=== PATIENT | male | born 1970 | race Caucasian/White ===

== ENCOUNTER 2017-08-11 20:08 | Emergency (ER) | payer BC, SELFPAY ==
[2017-08-11 20:09] VITALS: BP 150/106; PULSE 67; RESP 15; TEMP 36.6; BMI 28.7
--- NOTE | 2017-08-11 20:24 | EKG12_ITS ---
Test Reason : BP Blood Pressure : / mmHG Vent. Rate : 064 BPM Atrial Rate : 064 BPM P-R Int : 152 ms QRS Dur : 090 ms QT Int : 420 ms P-R-T Axes : 057 050 029 degrees QTc Int : 433 ms Normal sinus rhythm Nonspecific T wave abnormality Abnormal ECG Confirmed by JUAN M LEE, JAI ([id number]), general expeditor DARLENE POND ([id number] on 08/13/2017 1:26:15 PM Referred By: MARGAUX ANTHONY Confirmed By:JAI MCGOWAN MD
--- NOTE | 2017-08-11 20:25 | ED.VISSUMM ---
- ER Visit Summary Date of Service: 08/11/17 Chief Complaint: Elevated blood pressure History of Present Illness: The patient is a 46 M medical history significant for hypertension presents to the emergency department with a few days of elevated blood pressure. The patient is on 10 mg of amlodipine. He is also on atorvastatin. He states over the past few days, he is just felt not myself. He states he took his blood pressure at home and it was 182/104. He does admit to mild headache. He denies visual change. He denies any weakness numbness or tingling. He states that he did have some mild chest tightness, but let out a big burp on the way to the hospital and his pain resolved. It was non-radiating. It was not exertional. The patient states that he does not check his blood pressure normally. He states a few weeks ago, he went in for dental procedure and his blood pressure was 170 systolic. He has had no recent changes in his medications. Physical Examination: Vital signs reviewed General: Well-nourished, well-developed Head: Normocephalic, atraumatic Eyes: Pupils equal and reactive, extraocular muscles intact Neck, supple, no lymphadenopathy Heart: Regular rate and rhythm Respiratory: No distress, clear bilaterally Abdomen: Soft, nontender, nondistended, no peritoneal signs Back: Nontender Extremities: Nontender, no edema, no cords Skin: Normal color no rash Neuro: Alert and oriented, no focal or lateralizing deficits Test Results: [] Emergency Department Course and Treatment: The patient has an EKG which shows no acute ischemic change. His cardiac enzymes are normal. Screening labs are unremarkable. Without intervention, the patient's blood pressure decreased to the 130 systolic. He is a benign neurologic examination. The patient has had significant intolerance to multi antihypertensives. I am going to write him a prescription for hydrochlorothiazide, but told him not to fill it until he speaks with his PCP on Sunday. As his blood pressures down to the normal range, I am not sure if he will need it. The patient is comfortable with this plan of care will be discharged. Treatment Plan: [] Disposition: Discharge Impression: 1. Hypertension This note was generated with [employer] software. It may contain incorrect words, spelling, and punctuation that were not noted in review of the chart prior to signing ED Disposition - Plan for ED Patient: Disposition: Home or Assisted Living Chief Complaint: Hypertension Instructions: ED HTN Established Prescriptions: Hydrochlorothiazide [Hctz] 25 mg PO DAILY #30 tab Referrals: [facility] Doctor,Out of [Primary Care Provider] -
[2017-08-11 20:46] LABS: Absolute Lymphocyte Count 2.46 X10^3/ul (0.83-4.51); Absolute Neutrophil Count 3.3 X10^3/uL (2.0-7.7); Basophil# 0.06 X10^3/uL; Basophil% 0.9 % (0-1); Eosinophil# 0.27 X10^3/uL; Eosinophils% 3.9 % (0-5); Hematocrit 43.2 % (40-54); Hemoglobin 14.6 g/dl (13.0-16.5); Lymphocyte # 2.46 X10^3/ul (4.0); Lymphocyte % 35.5 % (19-41); Mean Corp Hgb Conc 33.8 g/gl (32-36); Mean Corpuscular Hgb 29.1 pg (27.0-32.0); Mean Corpuscular Volume 86.2 fL (80-94); Monocyte# 0.86 X10^3/uL; Monocyte% 12.4 % (0-10); Neutrophil # 3.27 X10^3/uL (2.7-7.7); Neutrophil % 47.2 % (47-70); Platelet Count 364 K/mm3 (150-450); RBC Distribution Width CV 12.8 % (11.6-14.6); RBC Distribution Width SD 39.6 fl (35.1-43.9); Red Blood Count 5.01 M/mm3 (4.6-6.2); White Blood Count 6.9 K/mm3 (4.4-11.0)
[2017-08-11 20:47] LABS: POSITIVE COUNT NO; POSITIVE DIFFERENTIAL NO; POSITIVE MORPHOLOGY NO
[2017-08-11 21:04] LABS: Anion Gap 7 (5-15); BUN 14 mg/dL (7-18); BUN/Creat Ratio 15.7 RATIO (10-20); Calcium,Total 9.3 mg/dL (8.5-10.1); Chloride 107 mmol/L (98-107); Creatinine, Serum 0.89 mg/dL (0.70-1.30); EST Glomerular Filtration Rate 98 mL/min (>60); Est Glom Filt Rate - Afr Amer 118 mL/min (>60); Estimated Creatinine Clearance 109.36 ml/min; Glucose 86 mg/dL (74-106); Potassium 3.6 mmol/L (3.5-5.1); Sodium Level 142 mmol/L (136-145)
[2017-08-11 21:06] VITALS: BP 143/103; PULSE 57; RESP 16; O2SAT 97
[2017-08-11 22:26] VITALS: BP 133/96; PULSE 58; RESP 18; O2SAT 99
== END 2017-08-11 22:28 | disposition home or self-care (01) ==
PROVIDERS: Emergency Provider Emergency Medicine
DX: I10 Essential (primary) hypertension (principal)
CPT/HCPCS: 80048; 84484; 85025; 93005; 99283; A4216

== ENCOUNTER → 2020-04-05 13:58 | Outpatient (CLI) | payer BC, SELFPAY ==
[2020-04-05 13:23] VITALS: BMI 28.5
[2020-04-05 15:47] LABS: T4 Free Direct 3.08 ng/dL (0.76-1.46); Thyroid Stim Hormone (TSH) < 0.01 uIU/mL (0.358-3.74)
[2020-04-07 06:17] LABS: Thyroid Peroxidase AB 207 IU/mL (0-34)
== END ==
PROVIDERS: Visit Provider Internal Medicine Endocrinology, Diabetes & Metabolism
DX: E05.90 Thyrotoxicosis, unspecified without thyrotoxic crisis or storm (principal)
CPT/HCPCS: 36415; 84439; 84443; 84481; 86376

== ENCOUNTER → 2020-07-20 12:00 | Outpatient (CLI) | payer BC, SELFPAY ==
[2020-07-09 13:34] VITALS: BMI 30.7
--- NOTE | 2020-07-20 12:02 | NM_ITS ---
STUDY: RADIOPHARMACEUTICAL THERAPY. REASON FOR EXAM: Male, 49 years old. Hyperthyroidism TECHNIQUE: The patient ingested 16.4 mCi of IODINE-131 for treatment of hyperthyroidism. COMPARISON: None. FINDINGS: The patient ingested 16.4 mCi of IODINE-131 for treatment of hyperthyroidism. NM/Therapy I-131 IMPRESSION: 16.4 mCi of IODINE-131 for treatment of hyperthyroidism. Electronically Signed: Cesar Kahn MD at 12:31 EST , Service support ,
== END ==
PROVIDERS: PCP Internal Medicine; Referring Provider Internal Medicine Endocrinology, Diabetes & Metabolism; Visit Provider Internal Medicine Endocrinology, Diabetes & Metabolism
DX: E05.00 Thyrotoxicosis with diffuse goiter without thyrotoxic crisis or storm (principal)
CPT/HCPCS: 79005; A9517

== ENCOUNTER → 2021-04-04 16:49 | Outpatient (CLI) | payer BC, SELFPAY ==
[2021-04-06 16:09] LABS: Endomysial Antibody IgA Negative (Negative)
[2021-04-06 16:47] LABS: Immunoglobulin A 346 mg/dL (90-386); t-Transglutaminase IgA <2 U/mL (0-3)
== END ==
PROVIDERS: PCP Internal Medicine; Referring Provider Internal Medicine Gastroenterology; Visit Provider Internal Medicine Gastroenterology
DX: R19.7 Diarrhea, unspecified (principal)
CPT/HCPCS: 36415; 82784; 83516; 86140; 86255